=== PATIENT | male | born 1960 | race Two or more races ===

== ENCOUNTER 2016-08-23 13:53 | Emergency (ER) | payer OTHER ==
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
[2016-08-23 14:42] VITALS: BP 124/75
== END 2016-08-23 14:41 | disposition home or self-care (01) ==
LOC: ER 13:53
DX: S16.1XXA Strain of muscle, fascia and tendon at neck level, initial encounter (principal); V49.40XA Driver injured in collision with unspecified motor vehicles in traffic accident, initial encounter; M54.2 Cervicalgia; R11.0 Nausea; I10 Essential (primary) hypertension
CPT/HCPCS: 99283

== ENCOUNTER 2017-01-20 09:40 | Day surgery (SDC) | payer OTHER ==
[~2017-01-20 09:40] MED LIST: DIPHENHYDRAMINE HCL 50 MG/ML VIAL ONE; EPINEPHRINE INJ 1 MG/10 ML DISP.SYRIN ONE; FLUMAZENIL INJ 0.5 MG/5 ML VIAL ONE; GLUCAGON,HUMAN RECOMB 1 MG INJ ONE; NALOXONE HCL INJ/PF 0.4 MG/1 ML SDV ONE; ONDANSETRON HCL INJ/PF 4 MG/2 ML SDV ONE
[2017-01-20] MEDS: MIDAZOLAM 2 MG/2 ML INJ ONE ×2 (10:14→10:22)
[2017-01-20] MEDS: FENTANYL CITRATE INJ/PF 100 MCG/2 ML AMPUL ONE ×3 (10:16→10:20)
--- NOTE | 2017-01-20 10:38 | Operative Report ---
Operative Report DATE OF SURGERY: 01/20/17 Operative Report: The risks, benefits and alternatives of the procedure including risks of bleeding, perforation requiring surgery are explained to the patient detail and informed consent was obtained. Patient was taken back to the endoscopy suite and placed in the left, lateral decubital position. Timeout was called. Conscious sedation medications are provided. A rectal examination was done which did not reveal any masses, tears or fissures. An Olympus videoscope was inserted into the patient's rectum. The scope was then carefully advanced all the way to the cecum. The cecum was identified by the usual anatomical landmarks including the ileocecal valve as well as the appendiceal office. Photodocumentation was obtained. The scope was then sequentially pulled back via the rest segments of the colon including the ascending colon, hepatic flexure, transverse colon, splenic flexure, descending colon finding to the rectosigmoid portions of the colon. Intubation of the terminal ileum was done. Retroflexion maneuvers performed. 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 No masses, AVMs, diverticulosis noted. OPERATION: Colonoscopy with biopsy SURGEON: JANA KEENAN ANESTHESIA: Moderate Sedation - 4 mg of Versed, 100 mcg of fentanyl. Conscious sedation monitoring time 30 minutes. TISSUE REMOVED OR ALTERED: As noted above. COMPLICATIONS: None. ESTIMATED BLOOD LOSS: None. INTRAOPERATIVE FINDINGS: As described above. PROCEDURE: Patient tolerated procedure well. No immediate postprocedure comp occasions are noted. Patient discharged in good condition. Discharge date 01/20/2017. Discharge diet: Regular. Discharge activity: Regular. We will wait on pathology. Follow-up in 2-3 weeks. Patient is instructed to call the office or proceed to the emergency room should there be any further problems or questions.
[2017-01-20 11:26] VITALS: BP 124/714
== END 2017-01-20 11:30 | disposition home or self-care (01) ==
LOC: END 09:40
PROVIDERS: ATTEND Internal Medicine Gastroenterology
PROC: 0DBB8ZX Excision of Ileum, Via Natural or Artificial Opening Endoscopic, Diagnostic (ICD-10-PCS; principal; 2017-01-20 10:00)
DX: K52.9 Noninfective gastroenteritis and colitis, unspecified (principal); E78.5 Hyperlipidemia, unspecified; G47.33 Obstructive sleep apnea (adult) (pediatric); K21.9 Gastro-esophageal reflux disease without esophagitis; R73.03 Prediabetes; I10 Essential (primary) hypertension; M19.90 Unspecified osteoarthritis, unspecified site; Z79.899 Other long term (current) drug therapy; Z79.1 Long term (current) use of non-steroidal anti-inflammatories (NSAID)
CPT/HCPCS: 45380; 88305 ×2; J2250; J3010; J0171; J1200; J1610; J2310; J2405; J3490

== ENCOUNTER → 2018-08-24 | Outpatient (CLI) | payer OTHER | LOC: OD 11:58 | PROVIDERS: ATTEND Urology | DX: R97.20 Elevated prostate specific antigen [PSA] (principal) | CPT/HCPCS: 36415; 84153 ==